=== PATIENT | male | born 1935 | race Caucasian/White ===

== ENCOUNTER 2021-03-21 19:12 | Emergency (ER) | payer MEDICARE, SELFPAY ==
--- NOTE | ~2021-03-21 | XR_ITS ---
EXAMINATION: XR hand LT min 3V DATE: 03/21/2021 19:31 INDICATION: Left hand injury. TECHNIQUE: 3 views of left hand were obtained. COMPARISON: None. FINDINGS: Bone alignment is normal. No fracture. There is mild osteoarthritis of radioscaphoid joint, severe osteoarthritis of triscaphe joint, and moderate osteoarthritis of first carpometacarpal joint . There is mild osteoarthritis of all of the metacarpophalangeal joints and mild to moderate osteoart hritis of all of the interphalangeal joints. There are lacerations of the distal third and fourth dig its. No radiopaque foreign body. IMPRESSION: 1. Polyarticular osteoarthritis. Reviewed, dictated and finalized at location A.
--- NOTE | 2021-03-21 19:24 | ED.SKABFB ---
HPI - Skin/Abscess/Foreign Bdy General Chief complaint: Wound/Laceration Stated complaint: Left hand Source: patient Mode of arrival: ambulatory Limitations: no limitations History of Present Illness HPI narrative: Patient is an 86-year-old male who presents with lacerations to left second, third and fourth fingers from a upholstery auto trimmer. Patient reports cutting while cutting bushes. Denies being on blood thinners. Reports full range of motion to fingers, denies numbness and tingling. Dressing in place at this time. Patient unknown when last tetanus. MD complaint: laceration Related Data Home Medications Medication Instructions Recorded Confirmed atenolol 100 mg PO DAILY 03/21/21 03/21/21 chlorpheniramine maleate 4 mg PO Q4H PRN 03/21/21 03/21/21 [Chlorpheniramine Allergy] coQ10 (ubiquinol) 200 mg PO DAILY 03/21/21 03/21/21 dicyclomine 20 mg PO QID PRN 03/21/21 03/21/21 levothyroxine [Synthroid] 88 mcg PO DAILY 03/21/21 03/21/21 lisinopril-hydrochlorothiazide 1 tablet PO DAILY 03/21/21 03/21/21 magnesium citrate 250 mg PO DAILY 03/21/21 03/21/21 maltodextrin [Fiber Powder] 1 ea PO DAILY 03/21/21 03/21/21 nifedipine 30 mg PO DAILY 03/21/21 03/21/21 potassium chloride 10 meq PO DAILY 03/21/21 03/21/21 simvastatin 20 mg PO DAILY 03/21/21 03/21/21 sitagliptin [Januvia] 100 mg PO DAILY 03/21/21 03/21/21 spironolactone 25 mg PO DAILY 03/21/21 03/21/21 vitamins A,C,[id number] 2 tablet PO BID 03/21/21 03/21/21 [Ocuvite Preservision] Allergies Allergy/AdvReac Type Severity Reaction Status Date / Time No Known Allergies Allergy Verified 03/21/21 19:55 Review of Systems Review of Systems: CONSTITUTIONAL: Denies fever, chills, or sweats. EYES: Denies visual changes, redness, or discharge. ENT: Denies rhinorrhea, congestion, sore throat, or otalgia. CARDIOVASCULAR: Denies chest pain, palpitations, or edema. RESPIRATORY: Denies cough or dyspnea. GASTROINTESTINAL: Denies abdominal pain, nausea, vomiting, or diarrhea. GENITOURINARY: Denies dysuria or hematuria. SKIN: Laceration to left second, third and fourth digits MUSCULOSKELETAL: Denies back pain, joint pain, or myalgia. NEUROLOGIC: Denies headache, numbness, dizziness, or weakness. PSYCHIATRIC: Denies anxiety or depression. [facility] Past Medical History Medical History Arthritis Diabetes Fracture Gallbladder disease Glaucoma Heart murmur HTN (hypertension) Hypercholesterolemia Hypothyroidism IBS (irritable bowel syndrome) Irregular heartbeat Macular degeneration Mitral valve prolapse Peripheral neuropathy Prostate cancer Rectal polyp Seasonal allergies Sinus problem Ulcer Surgical History Surgical History H/O inguinal hernia repair H/O prostatectomy Hx of cholecystectomy Hx of tonsillectomy Family History Family History (Updated 03/21/21 @ 19:40 by SYDNEY Reeder) Other Arthritis Cancer Cerebrovascular accident Diabetes mellitus Heart disease Social History Social History (Updated 03/21/21 @ 19:47 by SYDNEY Reeder) Smoking status: Former smoker Alcohol intake: never Substance use: never Exam Narrative: GENERAL: Well-appearing, well-nourished, and in no acute distress. HEAD: Normocephalic, atraumatic. EYES: EOMI. No redness or drainage. Conjunctiva are normal. ENT: Mucous membranes pink and moist. CHEST: Clear to auscultation. HEART: Regular rate and rhythm. MUSCULOSKELETAL: No bony tenderness. EXTREMITIES: Normal range of motion. No edema. Distal sensation intact good capillary refill on all digits of left hand SKIN: Approximate 3 cm laceration to left second digit, approximate 3 cm laceration to the left third digit with area of avulsion, approximate 3.5 cm laceration to left fourth digit NEURO: No focal deficits. Alert and oriented x3. Gait steady. PSYCH: Normal affect. No signs of depre
[2021-03-21 19:36] VITALS: BP 149/75; PULSE 78; RESP 18; TEMP 36.7; O2SAT 99
[2021-03-21] MEDS: TETANUS,DIPHTHERIA,AC PERTUSSIS ADULT (0.5 ML) BOOSTRIX IM (19:51)
== END 2021-03-21 21:07 | disposition home or self-care (01) ==
PROVIDERS: Emergency Provider Nurse Practitioner; PCP Family Medicine
DX: S61.211A Laceration without foreign body of left index finger without damage to nail, initial encounter (principal); S61.213A Laceration without foreign body of left middle finger without damage to nail, initial encounter; S61.215A Laceration without foreign body of left ring finger without damage to nail, initial encounter; W29.3XXA Contact with powered garden and outdoor hand tools and machinery, initial encounter; Z23 Encounter for immunization; E11.39 Type 2 diabetes mellitus with other diabetic ophthalmic complication; H40.9 Unspecified glaucoma; H42 Glaucoma in diseases classified elsewhere; R01.1 Cardiac murmur, unspecified; I10 Essential (primary) hypertension; E78.00 Pure hypercholesterolemia, unspecified; E03.9 Hypothyroidism, unspecified; I34.1 Nonrheumatic mitral (valve) prolapse; E11.42 Type 2 diabetes mellitus with diabetic polyneuropathy; Z85.46 Personal history of malignant neoplasm of prostate; M19.90 Unspecified osteoarthritis, unspecified site; Z90.79 Acquired absence of other genital organ(s); Z87.891 Personal history of nicotine dependence
CPT/HCPCS: 12004; 73130; 90471; 90715; 99213; G0463

== ENCOUNTER 2021-05-16 14:30 | Outpatient (RCR) | payer MEDICARE, SELFPAY ==
[2021-04-17 14:11] VITALS: BMI 24.3
[2021-04-17 14:13] VITALS: BMI 24.3
== END 2021-05-18 10:37 | disposition home or self-care (01) ==
LOC: ANHDMC 14:30
PROVIDERS: PCP Family Medicine; Visit Provider Family Medicine
DX: E11.9 Type 2 diabetes mellitus without complications (principal); Z71.89 Other specified counseling; Z71.3 Dietary counseling and surveillance
CPT/HCPCS: 97802; G0108; G0109

== ENCOUNTER 2021-08-14 10:09 | Outpatient (RCR) | payer MEDICARE, SELFPAY | END 2021-08-14 11:18 | disposition home or self-care (01) | LOC: ANHDMC 10:09 | PROVIDERS: PCP Family Medicine; Visit Provider Family Medicine | DX: E11.9 Type 2 diabetes mellitus without complications (principal); Z71.89 Other specified counseling | CPT/HCPCS: G0108 ==